=== PATIENT | male | born 1940 | race Caucasian/White ===

== ENCOUNTER 2023-08-30 08:13 | Inpatient (IN) | payer OTHER ==
[~2023-08-30] VITALS: Ht 180.3 cm; Wt 118.0 kg
[~2023-08-30 08:13] MED LIST: FURO40TA4 PO; LABE100T7 PO; LATA0.008 OP/OT; LISI20TA56 PO; METF750T54 PO; NIFE1TAB30 PO; RABE20TA19 PO; SIMV20TA20 PO; TAMS1CAP25 PO
[2023-08-30 09:03] LABS: Basophils # (auto) 0 10 ^3/uL (0-0.2); Basophils % (auto) 0.1 % (0.0-2.0); Eosinophils # (auto) 0 10 ^3/uL (0-0.8); Hematocrit 46.1 % (41.0-53.0); Hemoglobin 15.6 g/dL (13.5-17.5); Lymphocytes % (auto) 4.7 % (10.0-50.0); Mean Corpuscular Hemoglobin 31.6 pg (28.0-32.0); Mean Corpuscular Hgb Conc. 33.9 g/dL (32.0-36.0); Mean Corpuscular Volume 93.3 fL (80.0-100.0); Monocytes # (auto) 1.6 10 ^3/uL (0-1.3); Monocytes % (auto) 7.3 % (0.0-12.0); Neutrophils # (auto) 19.3 10 ^3/uL (1.6-8.6); Neutrophils % (auto) 87.9 % (37.0-80.0); Red Blood Cells 4.94 10^6/uL (4.5-5.90); Red Cell Distribution Width 14.7 % (11.8-14.3)
[2023-08-30 09:18] LABS: Chloride 109 mmol/L (98-107); Potassium 4.2 mmol/L (3.5-5.1); Sodium 141 mmol/L (136-145)
[2023-08-30 09:19] LABS: Anion Gap 11 (5-15); Carbon Dioxide 21 mmol/L (20-30)
[2023-08-30 09:24] LABS: BUN/Creatinine Ratio 16.2 (10.0-20.0); Blood Urea Nitrogen 53 mg/dL (9-23); Glucose 146 mg/dL (74-106)
[2023-08-30] MEDS: SODIUM CHLORIDE 0.9% 1,000 ML IV ONE (10:15)
[2023-08-30] MEDS: cefTRIAXone 1GM/50ML D5W 50 ML IV ONE (10:15)
[2023-08-30 11:01] LABS: Urine Bacteria FEW /hpf (None Seen); Urine Blood 2+ /uL (Negative); Urine Budding Yeast OCCASIONAL /hpf (None Seen); Urine Protein, UAD 2+ (Negative); Urine Urobilinogen Normal (Negative); Urine WBC 616 /hpf (0 - 3); Urine WBC Clumps PRESENT /hpf (None Seen); Urine pH 6.5 (5.0-9.0)
[2023-08-30 11:04] LABS: Urine Clarity Cloudy (Clear); Urine Color Yellow (Yellow)
[2023-08-30] MEDS ORDERED: MORPHINE SULFATE INJ 2 MG/ml SYRG IV PRN (11:30)
[2023-08-30] MEDS ORDERED: NITROGLYCERIN 0.4 MG SL TAB SL PRN (11:30)
[2023-08-30] MEDS: SODIUM CHLORIDE 0.9% 1,000 ML IV SCH (11:50)
[2023-08-30] MEDS: levoFLOXacin 500MG 100 ML IV ONE (13:27)
[2023-08-30] MEDS ORDERED: DEXTROSE (50%) 50ML SYRG IV PRN (14:15)
[2023-08-30 16:27] VITALS: PULSE 88; RESP 20; O2SAT 98
[2023-08-30] MEDS: InsuLIN REG 1unit/0.01ml Soln (100units/ml) SC SCH ×2 (17:00→22:00)
[2023-08-30] MEDS: ACCU-CHEK COMFORT CURVE STRIP VI SCH (18:29)
[2023-08-30 21:00] VITALS: BP 114/70; PULSE 111; RESP 20; TEMP 100.8; O2SAT 92
[2023-08-30] MEDS: HEPARIN SODIUM (PORCINE) 5000 UNITS/ML 1ML VIAL SC SCH (22:18)
[2023-08-31] VITALS (7 sets, daily range): BP systolic 117–156; BP diastolic 60–103; PULSE 80–100; RESP 17–20; TEMP 97.6–100.4; O2SAT 91–99
[2023-08-31 09:54] LABS: Basophils # (auto) 0 10 ^3/uL (0-0.2); Basophils % (auto) 0.3 % (0.0-2.0); Eosinophils # (auto) 0 10 ^3/uL (0-0.8); Eosinophils % (auto) 0.3 % (0.0-7.0); Hematocrit 41.8 % (41.0-53.0); Hemoglobin 13.9 g/dL (13.5-17.5); Lymphocytes # (auto) 0.8 10 ^3/uL (0.4-5.4); Mean Corpuscular Hemoglobin 30.8 pg (28.0-32.0); Mean Corpuscular Hgb Conc. 33.4 g/dL (32.0-36.0); Mean Corpuscular Volume 92.2 fL (80.0-100.0); Monocytes # (auto) 0.7 10 ^3/uL (0-1.3); Monocytes % (auto) 5.4 % (0.0-12.0); Neutrophils # (auto) 10.5 10 ^3/uL (1.6-8.6); Nucleated Red Blood Cells % 0.1 %; Red Blood Cells 4.53 10^6/uL (4.5-5.90); Red Cell Distribution Width 14.5 % (11.8-14.3); White Blood Cell 12.1 10^3/uL (4.4-10.8)
[2023-08-31 10:03] LABS: Chloride 104 mmol/L (98-107)
[2023-08-31 10:04] LABS: Anion Gap 6 (5-15); Carbon Dioxide 25 mmol/L (20-30)
[2023-08-31 10:05] LABS: Sodium 135 mmol/L (136-145)
[2023-08-31 10:09] LABS: Glucose 114 mg/dL (74-106)
[2023-08-31 10:20] LABS: BUN/Creatinine Ratio 23.1 (10.0-20.0); Blood Urea Nitrogen 57 mg/dL (9-23)
[2023-08-31] MEDS: levoFLOXacin 250MG 50 ML IV SCH (14:50)
[2023-08-31] MEDS ORDERED: HYDROcodone-ACET 5/325MG TAB PO PRN (15:00)
[2023-09-01 00:55] VITALS: BP 151/73; PULSE 74; RESP 20; TEMP 98.4; O2SAT 94
[2023-09-01 04:55] VITALS: BP 155/78; PULSE 93; RESP 17; TEMP 99.3; O2SAT 92
[2023-09-01 09:00] VITALS: BP 162/87; PULSE 101; RESP 16; TEMP 97.8; O2SAT 92
[2023-09-01 13:00] VITALS: BP 134/86; PULSE 104; RESP 18; TEMP 98.3; O2SAT 90
== END 2023-09-01 14:50 | DRG 683 ==
LOC: EDBD 08:13 → ER 08:13 → EDUNIT# 08:13 → OVERFLOW 11:35 → WEST WING 13:56 → OBSVTOIN 09-01 09:57
PROVIDERS: ADMIT Internal Medicine; ATTEND Internal Medicine
DX: N17.0 Acute kidney failure with tubular necrosis (principal); I24.89 Other forms of acute ischemic heart disease; N39.0 Urinary tract infection, site not specified; E66.9 Obesity, unspecified; E78.5 Hyperlipidemia, unspecified; N40.0 Benign prostatic hyperplasia without lower urinary tract symptoms; N18.9 Chronic kidney disease, unspecified; I12.9 Hypertensive chronic kidney disease with stage 1 through stage 4 chronic kidney disease, or unspecified chronic kidney disease; E11.22 Type 2 diabetes mellitus with diabetic chronic kidney disease; Z68.36 Body mass index [BMI] 36.0-36.9, adult; Z80.1 Family history of malignant neoplasm of trachea, bronchus and lung; W18.39XA Other fall on same level, initial encounter; Y93.01 Activity, walking, marching and hiking; Y92.002 Bathroom of unspecified non-institutional (private) residence as the place of occurrence of the external cause; Y99.8 Other external cause status
CPT/HCPCS: 36415; 72170; 76775; 80048; 81001; 82553; 82962; 84484; 85025; 87040; 87077; 87086; 87088; 87186; 93005; 97110; 97116; 97163; G0378; J1956

== ENCOUNTER 2023-09-28 15:45 | Inpatient (IN) | payer OTHER ==
[~2023-09-28] VITALS: Ht 177.8 cm; Wt 103.2 kg
[~2023-09-28 15:45] MED LIST changes: -FURO40TA4 PO; +LATA0.0020 EACHEYE; -LATA0.008 OP/OT
[2023-09-28 16:24] LABS: Urine Bacteria None Seen /hpf (None Seen); Urine WBC None Seen /hpf (0 - 3)
[2023-09-28 16:30] LABS: Basophils # (auto) 0.1 10 ^3/uL (0-0.2); Basophils % (auto) 0.8 % (0.0-2.0); Eosinophils # (auto) 0.2 10 ^3/uL (0-0.8); Eosinophils % (auto) 1.5 % (0.0-7.0); Hematocrit 47.3 % (41.0-53.0); Hemoglobin 15.6 g/dL (13.5-17.5); Lymphocytes # (auto) 1.8 10 ^3/uL (0.4-5.4); Lymphocytes % (auto) 15.7 % (10.0-50.0); Mean Corpuscular Hemoglobin 30.1 pg (28.0-32.0); Mean Corpuscular Hgb Conc. 32.9 g/dL (32.0-36.0); Mean Corpuscular Volume 91.6 fL (80.0-100.0); Monocytes # (auto) 1.3 10 ^3/uL (0-1.3); Monocytes % (auto) 11.4 % (0.0-12.0); Neutrophils # (auto) 7.9 10 ^3/uL (1.6-8.6); Neutrophils % (auto) 70.6 % (37.0-80.0); Nucleated Red Blood Cells % 0.2 %; Platelet Count (auto) 245 10^3/uL (140-450); Red Blood Cells 5.17 10^6/uL (4.5-5.90); Red Cell Distribution Width 15.3 % (11.8-14.3); White Blood Cell 11.2 10^3/uL (4.4-10.8)
[2023-09-28 16:38] LABS: Urine Blood 3+ /uL (Negative); Urine Clarity Ex.Turbid (Clear); Urine Color Dark-Brown (Yellow); Urine Protein, UAD 3+ (Negative); Urine Specific Gravity 1.018 (1.001-1.035); Urine Urobilinogen Normal (Negative); Urine pH 6.5 (5.0-9.0)
[2023-09-28 16:41] LABS: Chloride 101 mmol/L (98-107); Potassium 4.9 mmol/L (3.5-5.1); Sodium 136 mmol/L (136-145)
[2023-09-28 16:42] LABS: Anion Gap 9 (5-15); Calcium 9.6 mg/dL (8.7-10.4); Carbon Dioxide 26 mmol/L (20-30)
[2023-09-28 16:47] LABS: BUN/Creatinine Ratio 38.8 (10.0-20.0); Blood Urea Nitrogen 66 mg/dL (9-23); Glucose 134 mg/dL (74-106)
[2023-09-28] MEDS: cefTRIAXone 1GM/50ML D5W 50 ML IV ONE (16:58)
[2023-09-28] MEDS: SODIUM CHLORIDE 0.9% 1,000 ML IV ONE (16:59)
[2023-09-28 17:38] VITALS: PULSE 113; RESP 18; O2SAT 93
[2023-09-28] MEDS ORDERED: NITROGLYCERIN 0.4 MG SL TAB SL PRN (18:45)
[2023-09-28] MEDS ORDERED: MORPHINE SULFATE INJ 2 MG/ml SYRG IV PRN (18:45)
[2023-09-28] MEDS ORDERED: ONDANSETRON HCL 4 MG/2 ML VIAL IV PRN (18:45)
[2023-09-28] MEDS: SODIUM CHLORIDE 0.9% 500 ML IV ONE (19:33)
[2023-09-28] MEDS: SODIUM CHLORIDE 0.9% 1,000 ML IV SCH (20:27)
[2023-09-28] MEDS: DOXYCYCLINE 100MG/250ML 250 ML IV SCH (20:34)
[2023-09-28] MEDS: ATORVASTATIN 20 MG TAB PO SCH (21:57)
[2023-09-28 23:00] VITALS: BP 127/76; PULSE 106; RESP 18; TEMP 98.2; O2SAT 94
[2023-09-28 23:08] VITALS: BP 127/76; PULSE 106; RESP 16; TEMP 98.2; O2SAT 94
[2023-09-29] VITALS (8 sets, daily range): BP systolic 104–127; BP diastolic 65–79; PULSE 83–109; RESP 16–18; TEMP 97.7–98.4; O2SAT 90–97
[2023-09-29 06:17] LABS: Basophils # (auto) 0.1 10 ^3/uL (0-0.2); Basophils % (auto) 0.7 % (0.0-2.0); Eosinophils # (auto) 0.2 10 ^3/uL (0-0.8); Eosinophils % (auto) 2.6 % (0.0-7.0); Hematocrit 42.5 % (41.0-53.0); Hemoglobin 14.4 g/dL (13.5-17.5); Lymphocytes # (auto) 1.7 10 ^3/uL (0.4-5.4); Lymphocytes % (auto) 18.7 % (10.0-50.0); Mean Corpuscular Hgb Conc. 33.8 g/dL (32.0-36.0); Mean Corpuscular Volume 91.7 fL (80.0-100.0); Monocytes % (auto) 11.1 % (0.0-12.0); Neutrophils # (auto) 5.9 10 ^3/uL (1.6-8.6); Neutrophils % (auto) 66.9 % (37.0-80.0); Nucleated Red Blood Cells % 0.1 %; Platelet Count (auto) 184 10^3/uL (140-450); Red Blood Cells 4.64 10^6/uL (4.5-5.90); Red Cell Distribution Width 15.1 % (11.8-14.3); White Blood Cell 8.9 10^3/uL (4.4-10.8)
[2023-09-29 06:30] LABS: Anion Gap 7 (5-15); Carbon Dioxide 25 mmol/L (20-30); Chloride 105 mmol/L (98-107); Potassium 4.3 mmol/L (3.5-5.1); Sodium 137 mmol/L (136-145)
[2023-09-29 06:32] LABS: Calcium 9.1 mg/dL (8.7-10.4)
[2023-09-29 06:36] LABS: Glucose 99 mg/dL (74-106)
[2023-09-29 06:37] LABS: BUN/Creatinine Ratio 28.7 (10.0-20.0); Blood Urea Nitrogen 41 mg/dL (9-23)
[2023-09-29] MEDS: LABETALOL HCL 200 MG TAB PO SCH (09:01)
[2023-09-29] MEDS: NIFEdipine ER 30 MG TAB PO SCH (10:48)
[2023-09-29] MEDS: TAMSULOSIN HYDROCHLORIDE 0.4 MG CAP PO SCH (17:57)
[2023-09-30] VITALS (8 sets, daily range): BP systolic 97–120; BP diastolic 57–75; PULSE 89–101; RESP 16–18; TEMP 96.9–98; O2SAT 92–98
[2023-09-30] MEDS: Ensure HIGH Protein Chocolate 8oz Bottle PO SCH (12:00)
[2023-09-30 17:19] LABS: Albumin 2.8 g/dL (3.2-4.8); Bilirubin, Direct 0.3 mg/dL (<0.3); Bilirubin, Total 0.8 mg/dL (0.2-1.0); Total Protein 6.6 g/dL (5.7-8.2)
[2023-09-30] MEDS: IOHEXOL 350 MG/ML 100ML IJ ONE (18:15)
[2023-10-01 05:00] VITALS: BP 129/67; PULSE 101; RESP 19; TEMP 97.6; O2SAT 94
[2023-10-01 07:30] VITALS: PULSE 101; PULSE 107; RESP 18; O2SAT 92
[2023-10-01 08:29] VITALS: BP 108/66; PULSE 108; RESP 21; TEMP 98.3; O2SAT 96
[2023-10-01 12:46] VITALS: BP 109/69; PULSE 111; RESP 19; TEMP 98.6; O2SAT 95
[2023-10-01 14:28] VITALS: BP 108/66; PULSE 91; RESP 16; TEMP 97.9; O2SAT 98
[2023-10-01 17:09] VITALS: BP 127/70; PULSE 102; RESP 20; TEMP 98.8; O2SAT 94
[2023-10-06] MEDS ORDERED: MEGE40TA4 PO (11:23)
[2023-10-08] MEDS ORDERED: LISI40TA16 PO (11:23)
== END 2023-10-01 19:00 | disposition home health service (06) | DRG 640 ==
LOC: EDBD 15:45 → ER 15:45 → TELE 18:47 → TELE-WESTW 23:00
PROVIDERS: ADMIT Hospitalist; ATTEND Hospitalist
DX: E86.0 Dehydration (principal); N17.0 Acute kidney failure with tubular necrosis; E11.9 Type 2 diabetes mellitus without complications; E78.5 Hyperlipidemia, unspecified; R62.7 Adult failure to thrive; I11.0 Hypertensive heart disease with heart failure; I50.9 Heart failure, unspecified; Z86.73 Personal history of transient ischemic attack (TIA), and cerebral infarction without residual deficits; Z74.01 Bed confinement status; Z79.899 Other long term (current) drug therapy; Z80.1 Family history of malignant neoplasm of trachea, bronchus and lung; L89.322 Pressure ulcer of left buttock, stage 2; L89.312 Pressure ulcer of right buttock, stage 2
CPT/HCPCS: 36415; 71045; 71250; 74176; 80048; 80076; 81001; 83605; 84484; 85025; 97163; G0378; J3490

== ENCOUNTER 2023-10-16 20:07 | Emergency (ER) | payer OTHER ==
[~2023-10-16] VITALS: Ht 185.4 cm; Wt 100.0 kg
[~2023-10-16 20:07] MED LIST changes: -LISI20TA56 PO; +LISI40TA16 PO; +MEGE40TA4 PO
[2023-10-16 20:30] VITALS: PULSE 83; RESP 18; TEMP 98.2; O2SAT 98
[2023-10-16 21:12] LABS: Basophils # (auto) 0.1 10 ^3/uL (0-0.2); Basophils % (auto) 0.6 % (0.0-2.0); Eosinophils # (auto) 0.2 10 ^3/uL (0-0.8); Eosinophils % (auto) 1.8 % (0.0-7.0); Hematocrit 41.9 % (41.0-53.0); Hemoglobin 14.3 g/dL (13.5-17.5); Lymphocytes # (auto) 1.1 10 ^3/uL (0.4-5.4); Lymphocytes % (auto) 11.4 % (10.0-50.0); Mean Corpuscular Hemoglobin 31.5 pg (28.0-32.0); Mean Corpuscular Hgb Conc. 34.1 g/dL (32.0-36.0); Mean Corpuscular Volume 92.3 fL (80.0-100.0); Monocytes # (auto) 0.8 10 ^3/uL (0-1.3); Monocytes % (auto) 8.4 % (0.0-12.0); Neutrophils # (auto) 7.6 10 ^3/uL (1.6-8.6); Neutrophils % (auto) 77.8 % (37.0-80.0); Nucleated Red Blood Cells % 0.2 %; Platelet Count (auto) 177 10^3/uL (140-450); Red Blood Cells 4.54 10^6/uL (4.5-5.90); Red Cell Distribution Width 17.3 % (11.8-14.3); White Blood Cell 9.8 10^3/uL (4.4-10.8)
[2023-10-16 21:29] LABS: Alanine Aminotransferase 127 U/L (7-40); Alkaline Phosphatase 259 U/L (46-116); Anion Gap 8 (5-15); Aspartate Aminotransferase 224 U/L (13-40); BUN/Creatinine Ratio 23.7 (10.0-20.0); Bilirubin, Total 4.2 mg/dL (0.2-1.0); Blood Urea Nitrogen 27 mg/dL (9-23); Calcium 9.6 mg/dL (8.7-10.4); Carbon Dioxide 22 mmol/L (20-30); Chloride 104 mmol/L (98-107); Glucose 118 mg/dL (74-106); Potassium 3.3 mmol/L (3.5-5.1); Sodium 134 mmol/L (136-145); Total Protein 6.7 g/dL (5.7-8.2)
[2023-10-16] MEDS: MORPHINE SULFATE 4 MG/ML SYR/VIAL IV ONE (22:02)
[2023-10-16] MEDS: ONDANSETRON HCL 4 MG/2 ML VIAL IV ONE (22:03)
[2023-10-16] MEDS: SODIUM CHLORIDE 0.9% 1,000 ML IV ONE (23:28)
[2023-10-17 02:13] LABS: Urine Bacteria None Seen /hpf (None Seen)
[2023-10-17 02:30] VITALS: O2SAT 96
[2023-10-17 02:35] LABS: Urine Blood 3+ /uL (Negative); Urine Clarity Ex.Turbid (Clear); Urine Color Orange (Yellow); Urine Protein, UAD 1+ (Negative); Urine Specific Gravity 1.016 (1.001-1.035); Urine Urobilinogen 2 mg/dL (Negative); Urine WBC 53 /hpf (0 - 3); Urine pH 5.5 (5.0-9.0)
[2023-10-17 02:53] VITALS: BP 119/68; PULSE 101; RESP 15
[2023-10-17] MEDS ORDERED: CIPR-173 PO (02:57)
[2023-10-17] MEDS: cefTRIAXone 1GM/50ML D5W 50 ML IV ONE (03:27)
== END 2023-10-17 04:26 | disposition home or self-care (01) ==
LOC: ER 20:07 → EDBD 20:07 → ER 10-17 04:26
DX: T83.098A Other mechanical complication of other urinary catheter, initial encounter (principal); N20.0 Calculus of kidney; N39.0 Urinary tract infection, site not specified; R31.9 Hematuria, unspecified; I11.0 Hypertensive heart disease with heart failure; I50.9 Heart failure, unspecified; E11.9 Type 2 diabetes mellitus without complications; E78.5 Hyperlipidemia, unspecified; Z88.8 Allergy status to other drugs, medicaments and biological substances; Z79.899 Other long term (current) drug therapy; Y92.89 Other specified places as the place of occurrence of the external cause
CPT/HCPCS: 36415; 51702; 74176; 80053; 81001; 83605; 85025; 96361; 96365; 96375; 99285; J0696; J2270; J2405; J7030

== ENCOUNTER 2023-10-29 18:41 | Inpatient (IN) | payer OTHER ==
[~2023-10-29] VITALS: Ht 182.9 cm; Wt 103.4 kg
[~2023-10-29 18:41] MED LIST changes: +CIPR-173 PO
[2023-10-29 19:45] VITALS: PULSE 130; RESP 25; O2SAT 97
[2023-10-29 19:56] LABS: Basophils # (auto) 0 10 ^3/uL (0-0.2); Basophils % (auto) 0.2 % (0.0-2.0); Eosinophils # (auto) 0 10 ^3/uL (0-0.8); Eosinophils % (auto) 0.1 % (0.0-7.0); Hematocrit 37.5 % (41.0-53.0); Hemoglobin 12.4 g/dL (13.5-17.5); Lymphocytes # (auto) 0.9 10 ^3/uL (0.4-5.4); Lymphocytes % (auto) 6.2 % (10.0-50.0); Mean Corpuscular Hgb Conc. 33.2 g/dL (32.0-36.0); Mean Corpuscular Volume 93.6 fL (80.0-100.0); Monocytes # (auto) 0.8 10 ^3/uL (0-1.3); Monocytes % (auto) 5.8 % (0.0-12.0); Neutrophils # (auto) 12.7 10 ^3/uL (1.6-8.6); Neutrophils % (auto) 87.7 % (37.0-80.0); Platelet Count (auto) 234 10^3/uL (140-450); Red Blood Cells 4.01 10^6/uL (4.5-5.90); Red Cell Distribution Width 18.6 % (11.8-14.3); White Blood Cell 14.5 10^3/uL (4.4-10.8)
[2023-10-29 20:17] LABS: INR 1.43 (0.9-1.15); Partial Thromboplastin Time 30.6 SEC (24.5-34.5); Prothrombin Time 14.8 sec (9.3-11.8)
[2023-10-29 20:22] LABS: Alanine Aminotransferase 111 U/L (7-40); Alkaline Phosphatase 416 U/L (46-116); Anion Gap 8 (5-15); Blood Alcohol 3.2 mg/dL (<10); Blood Urea Nitrogen 33 mg/dL (9-23); Calcium 8.6 mg/dL (8.7-10.4); Carbon Dioxide 22 mmol/L (20-30); Chloride 103 mmol/L (98-107); Glucose 112 mg/dL (74-106); Potassium 3.7 mmol/L (3.5-5.1); Sodium 133 mmol/L (136-145)
[2023-10-29 20:23] LABS: Albumin 2.8 g/dL (3.2-4.8); Aspartate Aminotransferase 167 U/L (13-40); Bilirubin, Total 1.9 mg/dL (0.2-1.0); Total Protein 6.4 g/dL (5.7-8.2)
[2023-10-29] MEDS: SODIUM CHLORIDE 0.9% 1,000 ML IV ONE (20:32)
[2023-10-29 22:11] LABS: Albumin 2.7 g/dL (3.2-4.8); Alkaline Phosphatase 399 U/L (46-116); Anion Gap 9 (5-15); Aspartate Aminotransferase 161 U/L (13-40); BUN/Creatinine Ratio 26.2 (10.0-20.0); Bilirubin, Total 1.7 mg/dL (0.2-1.0); Blood Urea Nitrogen 32 mg/dL (9-23); Calcium 8.5 mg/dL (8.7-10.4); Carbon Dioxide 20 mmol/L (20-30); Chloride 103 mmol/L (98-107); Glucose 117 mg/dL (74-106); Potassium 3.7 mmol/L (3.5-5.1); Sodium 132 mmol/L (136-145); Total Protein 6.2 g/dL (5.7-8.2)
[2023-10-29 22:21] LABS: Alanine Aminotransferase 94 U/L (7-40)
[2023-10-29 23:02] LABS: Urine Bacteria FEW /hpf (None Seen); Urine Blood 2+ /uL (Negative); Urine Budding Yeast MANY /hpf (None Seen); Urine Clarity Ex.Turbid (Clear); Urine Color Yellow (Yellow); Urine Protein, UAD TRACE (Negative); Urine Specific Gravity 1.013 (1.001-1.035); Urine Urobilinogen Normal (Negative); Urine WBC 157 /hpf (0 - 3); Urine WBC Clumps PRESENT /hpf (None Seen); Urine pH 5.5 (5.0-9.0)
[2023-10-29 23:06] LABS: Amphetamine Screen, Urine Neg (NEGATIVE)
[2023-10-29 23:07] LABS: Barbiturate Scree,Urine Neg (NEGATIVE); Benzodiazephine Screen, Urine Neg (NEGATIVE); Cannabinoid Screen, Urine Neg (NEGATIVE); Cocaine Screen, Urine Neg (NEGATIVE); Opiate Scree,Urine Neg (NEGATIVE); Phencyclidine Screen, Urine Neg (NEGATIVE)
[2023-10-30] VITALS (21 sets, daily range): BP systolic 75–113; BP diastolic 40–71; PULSE 72–142; RESP 18–31; TEMP 97.5–99.9; O2SAT 93–100
[2023-10-30] MEDS ORDERED: ONDANSETRON HCL 4 MG/2 ML VIAL IV PRN (00:45)
[2023-10-30] MEDS: SODIUM CHLORIDE 0.9% 1,000 ML IV SCH (02:37)
[2023-10-30 04:56] LABS: Basophils # (auto) 0.1 10 ^3/uL (0-0.2); Basophils % (auto) 0.4 % (0.0-2.0); Eosinophils # (auto) 0 10 ^3/uL (0-0.8); Eosinophils % (auto) 0.1 % (0.0-7.0); Hematocrit 39.6 % (41.0-53.0); Hemoglobin 12.9 g/dL (13.5-17.5); Lymphocytes # (auto) 0.7 10 ^3/uL (0.4-5.4); Lymphocytes % (auto) 5.1 % (10.0-50.0); Mean Corpuscular Hemoglobin 31.5 pg (28.0-32.0); Mean Corpuscular Hgb Conc. 32.7 g/dL (32.0-36.0); Mean Corpuscular Volume 96.4 fL (80.0-100.0); Monocytes # (auto) 0.7 10 ^3/uL (0-1.3); Monocytes % (auto) 5.1 % (0.0-12.0); Neutrophils # (auto) 12.7 10 ^3/uL (1.6-8.6); Neutrophils % (auto) 89.3 % (37.0-80.0); Platelet Count (auto) 187 10^3/uL (140-450); Red Blood Cells 4.11 10^6/uL (4.5-5.90); Red Cell Distribution Width 19.4 % (11.8-14.3); White Blood Cell 14.2 10^3/uL (4.4-10.8)
[2023-10-30 05:12] LABS: Alanine Aminotransferase 96 U/L (7-40); Albumin 2.8 g/dL (3.2-4.8); Alkaline Phosphatase 391 U/L (46-116); Anion Gap 7 (5-15); Aspartate Aminotransferase 136 U/L (13-40); BUN/Creatinine Ratio 21.8 (10.0-20.0); Bilirubin, Total 1.8 mg/dL (0.2-1.0); Blood Urea Nitrogen 26 mg/dL (9-23); Calcium 8.9 mg/dL (8.7-10.4); Carbon Dioxide 21 mmol/L (20-30); Chloride 105 mmol/L (98-107); Glucose 101 mg/dL (74-106); Potassium 3.9 mmol/L (3.5-5.1); Sodium 133 mmol/L (136-145); Total Protein 6.3 g/dL (5.7-8.2)
[2023-10-30] MEDS: METOPROLOL TARTRATE 1MG/1ML-5ML VIAL IV ONE (07:41)
[2023-10-30] MEDS: ACETAMINOPHEN 325 MG TAB PO PRN (08:35)
[2023-10-30] MEDS: ENOXAPARIN SOD 40 MG/0.4 ML SYRINGE SC SCH (11:13)
[2023-10-30] MEDS: cefTRIAXone 1GM/50ML D5W 50 ML IV SCH (11:13)
[2023-10-30] MEDS: FAMOTIDINE 20 MG TAB PO SCH (11:13)
[2023-10-30] MEDS: LABETALOL HCL 200 MG TAB PO SCH (16:56)
[2023-10-30] MEDS: NOREPINEPHRINE 8 MG/250ML KIT 250 ML IV ONE (20:08)
[2023-10-30] MEDS: NOREPINEPHRINE 8 MG/250ML KIT 250 ML IV SCH (21:37)
[2023-10-31] VITALS (75 sets, daily range): BP systolic 81–133; BP diastolic 48–73; PULSE 89–134; RESP 14–31; TEMP 96.8–99; O2SAT 94–100
[2023-10-31 07:03] LABS: Basophils # (auto) 0 10 ^3/uL (0-0.2); Basophils % (auto) 0.1 % (0.0-2.0); Eosinophils # (auto) 0 10 ^3/uL (0-0.8); Eosinophils % (auto) 0.2 % (0.0-7.0); Hemoglobin 11.8 g/dL (13.5-17.5); Lymphocytes # (auto) 0.9 10 ^3/uL (0.4-5.4); Lymphocytes % (auto) 5.6 % (10.0-50.0); Mean Corpuscular Hemoglobin 31.5 pg (28.0-32.0); Mean Corpuscular Hgb Conc. 33.6 g/dL (32.0-36.0); Mean Corpuscular Volume 93.9 fL (80.0-100.0); Monocytes # (auto) 0.9 10 ^3/uL (0-1.3); Monocytes % (auto) 5.5 % (0.0-12.0); Neutrophils # (auto) 14.5 10 ^3/uL (1.6-8.6); Neutrophils % (auto) 88.6 % (37.0-80.0); Platelet Count (auto) 225 10^3/uL (140-450); Red Blood Cells 3.73 10^6/uL (4.5-5.90); Red Cell Distribution Width 18.6 % (11.8-14.3); White Blood Cell 16.4 10^3/uL (4.4-10.8)
[2023-10-31 07:11] LABS: Alanine Aminotransferase 80 U/L (7-40); Albumin 2.5 g/dL (3.2-4.8); Alkaline Phosphatase 321 U/L (46-116); Anion Gap 10 (5-15); Aspartate Aminotransferase 103 U/L (13-40); BUN/Creatinine Ratio 26.6 (10.0-20.0); Blood Urea Nitrogen 34 mg/dL (9-23); Calcium 8.6 mg/dL (8.7-10.4); Carbon Dioxide 20 mmol/L (20-30); Chloride 103 mmol/L (98-107); Glucose 140 mg/dL (74-106); Potassium 3.6 mmol/L (3.5-5.1); Sodium 133 mmol/L (136-145)
[2023-10-31 07:12] LABS: Bilirubin, Total 1.5 mg/dL (0.2-1.0); Total Protein 5.7 g/dL (5.7-8.2)
[2023-10-31] MEDS ORDERED: VANCOMYCIN PER PHARMACY 0 MG IV SCH (10:00)
[2023-10-31] MEDS: Ensure HIGH Protein Chocolate 8oz Bottle PO SCH (10:04)
[2023-10-31] MEDS: TAMSULOSIN HYDROCHLORIDE 0.4 MG CAP PO SCH (10:05)
[2023-10-31] MEDS: VANCOMYCIN 1GM/200ML 200 ML IV SCH ×2 (11:30→17:21)
[2023-10-31] MEDS: LIDOCAINE VISCOUS 2% 15ML UD MT ONE (14:55)
[2023-10-31] MEDS: fentaNYL CITRATE 100 MCG/2 ML VL IV ONE (15:06)
[2023-10-31] MEDS: MIDAZOLAM HCL 5 MG/ML-1ML VIAL IM ONE (15:07)
[2023-11-01] VITALS (84 sets, daily range): BP systolic 83–127; BP diastolic 50–90; PULSE 85–134; RESP 14–26; TEMP 97.2–98.4; O2SAT 82–100
[2023-11-01] MEDS: VANCOMYCIN 1GM/200ML 200 ML IV SCH (02:01)
[2023-11-01 05:36] LABS: Basophils # (auto) 0 10 ^3/uL (0-0.2); Basophils % (auto) 0.1 % (0.0-2.0); Eosinophils # (auto) 0.2 10 ^3/uL (0-0.8); Eosinophils % (auto) 1.9 % (0.0-7.0); Hematocrit 37.7 % (41.0-53.0); Hemoglobin 12.1 g/dL (13.5-17.5); Lymphocytes # (auto) 1.2 10 ^3/uL (0.4-5.4); Lymphocytes % (auto) 9.7 % (10.0-50.0); Mean Corpuscular Hemoglobin 30.8 pg (28.0-32.0); Mean Corpuscular Hgb Conc. 32.1 g/dL (32.0-36.0); Mean Corpuscular Volume 95.8 fL (80.0-100.0); Monocytes # (auto) 0.9 10 ^3/uL (0-1.3); Monocytes % (auto) 7.1 % (0.0-12.0); Neutrophils # (auto) 10.4 10 ^3/uL (1.6-8.6); Neutrophils % (auto) 81.2 % (37.0-80.0); Nucleated Red Blood Cells % 0.1 %; Platelet Count (auto) 168 10^3/uL (140-450); Red Blood Cells 3.93 10^6/uL (4.5-5.90); Red Cell Distribution Width 19.9 % (11.8-14.3); White Blood Cell 12.8 10^3/uL (4.4-10.8)
[2023-11-01 05:56] LABS: Chloride 106 mmol/L (98-107); Potassium 3.5 mmol/L (3.5-5.1); Sodium 134 mmol/L (136-145)
[2023-11-01 05:57] LABS: Anion Gap 12 (5-15); Carbon Dioxide 16 mmol/L (20-30)
[2023-11-01 05:58] LABS: Calcium 8.7 mg/dL (8.7-10.4)
[2023-11-01 06:02] LABS: BUN/Creatinine Ratio 27.1 (10.0-20.0); Blood Urea Nitrogen 32 mg/dL (9-23); Glucose 112 mg/dL (74-106)
[2023-11-01] MEDS ORDERED: CLINIMIX PER PHARMACY 0 ML IV SCH (13:30)
[2023-11-01] MEDS: ALBUMIN 25% 100 ML IV ONE (14:32)
[2023-11-01] MEDS ORDERED: DEXTROSE (50%) 50ML SYRG IV SCH (15:00)
[2023-11-01] MEDS: FUROSEMIDE 40 MG/4 ML VIAL IV SCH (16:52)
[2023-11-01] MEDS: InsuLIN REG 1unit/0.01ml Soln (100units/ml) SC SCH (18:00)
[2023-11-01] MEDS: ACCU-CHEK COMFORT CURVE STRIP VI SCH (18:00)
[2023-11-01] MEDS: DAPTOMYCIN IV SCH (20:00)
[2023-11-01] MEDS: DAPTOmycin 500 MG in SODIUM CHL 0.9% 50 ML IV SCH (20:47)
[2023-11-01] MEDS: AMINO ACID INFUSION IN D10W 1,000 ML IV SCH (20:47)
[2023-11-01] MEDS: MUPIROCIN 2% OINT 15gm or 22gm FOR MRSA NARES EACHNOSTRI SCH (20:49)
[2023-11-02] VITALS (21 sets, daily range): BP systolic 95–116; BP diastolic 56–75; PULSE 87–112; RESP 13–23; TEMP 97.3–98.3; O2SAT 93–100
[2023-11-02 05:11] LABS: Basophils # (auto) 0 10 ^3/uL (0-0.2); Basophils % (auto) 0.2 % (0.0-2.0); Eosinophils # (auto) 0.2 10 ^3/uL (0-0.8); Eosinophils % (auto) 2.5 % (0.0-7.0); Hematocrit 37.2 % (41.0-53.0); Hemoglobin 11.9 g/dL (13.5-17.5); Lymphocytes % (auto) 13.6 % (10.0-50.0); Mean Corpuscular Hemoglobin 31.6 pg (28.0-32.0); Mean Corpuscular Hgb Conc. 31.8 g/dL (32.0-36.0); Mean Corpuscular Volume 99.1 fL (80.0-100.0); Monocytes # (auto) 0.7 10 ^3/uL (0-1.3); Monocytes % (auto) 9.8 % (0.0-12.0); Neutrophils # (auto) 5.2 10 ^3/uL (1.6-8.6); Neutrophils % (auto) 73.9 % (37.0-80.0); Nucleated Red Blood Cells % 0.1 %; Platelet Count (auto) 125 10^3/uL (140-450); Red Blood Cells 3.76 10^6/uL (4.5-5.90); Red Cell Distribution Width 20.2 % (11.8-14.3)
[2023-11-02 05:32] LABS: Alanine Aminotransferase 57 U/L (7-40); Albumin 2.6 g/dL (3.2-4.8); Alkaline Phosphatase 256 U/L (46-116); Anion Gap 13 (5-15); Aspartate Aminotransferase 62 U/L (13-40); BUN/Creatinine Ratio 26.9 (10.0-20.0); Blood Urea Nitrogen 28 mg/dL (9-23); Calcium 8.8 mg/dL (8.7-10.4); Carbon Dioxide 16 mmol/L (20-30); Chloride 108 mmol/L (98-107); Glucose 110 mg/dL (74-106); Potassium 3.1 mmol/L (3.5-5.1); Sodium 137 mmol/L (136-145)
[2023-11-02 05:33] LABS: Bilirubin, Total 0.8 mg/dL (0.2-1.0); Phosphorus 2.4 mg/dL (2.4-5.1); Total Protein 5.8 g/dL (5.7-8.2)
[2023-11-02] MEDS: POTASSIUM EFFERVESENT TAB 25 MEQ PO ONE (06:39)
[2023-11-02] MEDS: POTASSIUM PHOSPHATE 22 MEQ in SODIUM CHL 0.9% 100 ML IV ONE (12:02)
[2023-11-02] MEDS: MIDODRINE HCL 10 MG TAB PO SCH (19:01)
[2023-11-03] VITALS (21 sets, daily range): BP systolic 93–117; BP diastolic 58–69; PULSE 88–113; RESP 14–22; TEMP 96.9–98.7; O2SAT 83–100
[2023-11-03 05:32] LABS: Alanine Aminotransferase 50 U/L (7-40); Albumin 2.7 g/dL (3.2-4.8); Alkaline Phosphatase 256 U/L (46-116); Anion Gap 9 (5-15); Aspartate Aminotransferase 52 U/L (13-40); BUN/Creatinine Ratio 35.4 (10.0-20.0); Blood Urea Nitrogen 34 mg/dL (9-23); Calcium 8.7 mg/dL (8.7-10.4); Carbon Dioxide 24 mmol/L (20-30); Chloride 105 mmol/L (98-107); Glucose 123 mg/dL (74-106); Magnesium 1.7 mg/dL (1.6-2.6); Potassium 2.8 mmol/L (3.5-5.1); Sodium 138 mmol/L (136-145)
[2023-11-03 05:33] LABS: Bilirubin, Total 0.8 mg/dL (0.2-1.0); Phosphorus 2.1 mg/dL (2.4-5.1); Total Protein 5.9 g/dL (5.7-8.2)
[2023-11-03] MEDS: POTASSIUM CHL 20MEQ/100ML 100 ML IV SCH (07:00)
[2023-11-03] MEDS: POTASSIUM CHL 20MEQ/100ML 100 ML IV ONE (10:27)
[2023-11-03] MEDS: POTASSIUM PHOSPHATE 22 MEQ in SODIUM CHL 0.9% 100 ML IV ONE (17:25)
[2023-11-04 01:00] VITALS: BP 104/63; PULSE 86; RESP 19; TEMP 98.6; O2SAT 97
[2023-11-04 05:00] VITALS: BP 113/61; PULSE 68; RESP 18; TEMP 98.4; O2SAT 92
[2023-11-04 07:40] VITALS: O2SAT 98
[2023-11-04 08:00] VITALS: PULSE 87
[2023-11-04 20:00] VITALS: PULSE 98; O2SAT 98
[2023-11-05 08:00] VITALS: PULSE 87; O2SAT 98
[2023-11-05 15:40] LABS: Alanine Aminotransferase 79 U/L (7-40); Albumin 2.4 g/dL (3.2-4.8); Alkaline Phosphatase 306 U/L (46-116); Anion Gap 9 (5-15); Aspartate Aminotransferase 146 U/L (13-40); BUN/Creatinine Ratio 37.2 (10.0-20.0); Blood Urea Nitrogen 29 mg/dL (9-23); Calcium 8.4 mg/dL (8.7-10.4); Carbon Dioxide 23 mmol/L (20-30); Chloride 108 mmol/L (98-107); Glucose 100 mg/dL (74-106); Magnesium 1.6 mg/dL (1.6-2.6); Potassium 3.1 mmol/L (3.5-5.1); Sodium 140 mmol/L (136-145)
[2023-11-05 15:41] LABS: Bilirubin, Total 1.4 mg/dL (0.2-1.0); Phosphorus 2.2 mg/dL (2.4-5.1); Total Protein 5.4 g/dL (5.7-8.2)
[2023-11-05 20:00] VITALS: PULSE 108; PULSE 87; O2SAT 98
[2023-11-05 20:45] VITALS: BP 115/59; PULSE 107; RESP 17; TEMP 98; O2SAT 94
[2023-11-06 08:00] VITALS: PULSE 87; RESP 18; O2SAT 98
[2023-11-06 08:39] VITALS: BP 120/80; PULSE 102; RESP 16; TEMP 98.3; O2SAT 94
[2023-11-06 13:00] VITALS: BP 114/70; PULSE 102; RESP 16; TEMP 98.2; O2SAT 94
[2023-11-06] MEDS ORDERED: DOXY-286 PO (16:15)
[2023-11-06 17:00] VITALS: BP 112/68; PULSE 107; RESP 16; TEMP 97.9; O2SAT 94
[2023-11-06 17:24] VITALS: BP 112/68; PULSE 107; RESP 16; TEMP 97.9; O2SAT 94
== END 2023-11-06 19:20 | disposition hospice, home (50) | DRG 698 ==
LOC: ER 18:41 → EDBD 18:41 → TELE 10-30 00:42 → TELE-EAST 10-30 08:50 → OBSVTOIN 10-30 13:55 → DOU IN ICU 10-30 20:15 → ICU CENTRL 11-01 05:39 → DOU IN ICU 11-02 06:12 → TELE-WESTW 11-03 13:35 → TELE-CENTR 11-03 23:57
PROVIDERS: ADMIT Internal Medicine; ATTEND Internal Medicine
DX: T83.511A Infection and inflammatory reaction due to indwelling urethral catheter, initial encounter (principal); A41.02 Sepsis due to Methicillin resistant Staphylococcus aureus; I50.33 Acute on chronic diastolic (congestive) heart failure; R65.21 Severe sepsis with septic shock; I13.0 Hypertensive heart and chronic kidney disease with heart failure and stage 1 through stage 4 chronic kidney disease, or unspecified chronic kidney disease; N39.0 Urinary tract infection, site not specified; E83.51 Hypocalcemia; K80.20 Calculus of gallbladder without cholecystitis without obstruction; N18.9 Chronic kidney disease, unspecified; R62.7 Adult failure to thrive; I87.2 Venous insufficiency (chronic) (peripheral); Z66 Do not resuscitate; E11.22 Type 2 diabetes mellitus with diabetic chronic kidney disease; E78.00 Pure hypercholesterolemia, unspecified; N40.0 Benign prostatic hyperplasia without lower urinary tract symptoms; Z88.6 Allergy status to analgesic agent; Z79.899 Other long term (current) drug therapy; Z74.01 Bed confinement status; Z88.1 Allergy status to other antibiotic agents; Z80.1 Family history of malignant neoplasm of trachea, bronchus and lung; Z79.84 Long term (current) use of oral hypoglycemic drugs; Z68.31 Body mass index [BMI] 31.0-31.9, adult
CPT/HCPCS: 36415; 70450; 71045; 74176; 80048; 80053; 80307; 80320; 81001; 82140; 82962; 83605; 83735; 83880; 84100; 84484; 85025; 85610; 85730; 87040; 87077; 87081; 87086; 87147; 87186; 93005; 93306; 97110; 97163; 97530; 99291; G0378; J2250; J3480; P9047